=== PATIENT | male | born 1940 | race Caucasian/White ===

== ENCOUNTER 2016-09-17 07:56 | Emergency (ER) | payer MEDICARE ==
[~2016-09-17] VITALS: Ht 180.3 cm; Wt 136.4 kg
[2016-09-17 08:02] VITALS: TEMP 98
[2016-09-17 09:00] LABS: BASO # 0.1 (0.0-0.2); BASO % 1.6 % (0.0-2.0); EOS # 0.2 (0.0-0.7); EOS % 3.9 % (0-4.0); GRAN % 53.1 % (42.2-75.2); HEMATOCRIT 44.3 % (42.0-52.0); HEMOGLOBIN 14.4 g/dl (13.5-18.0); LYMPH # 1.8 (1.2-3.4); LYMPH % 31.4 % (20.0-51.0); MEAN CELL VOLUME 88 fl (80.0-100.0); MEAN CORPUSCULAR HEMOGLOBIN 29 pg (27.0-31.0); MEAN CORPUSCULAR HGB CONC 33 g/dl (33.0-37.0); MEAN PLATELET VOLUME 9.8 fl (7.4-10.4); MONO # 0.6 (0.1-0.6); PLATELET COUNT 104 K/mm3 (130-400); RED BLOOD COUNT 5.01 M/mm3 (4.20-5.60); REDCELL DISTRIBUTION WIDTH-CV 13.7 % (11.5-14.5); WHITE BLOOD COUNT 5.7 K/mm3 (4.8-10.8)
[2016-09-17 09:12] LABS: ADJUSTED CALCIUM 9.5 mg/dL (8.4-10.2); ALANINE AMINOTRANSFERASE 33 U/L (21-72); ALBUMIN 4.3 gm/dL (3.5-5.0); ALKALINE PHOSPHATASE 72 U/L (50-136); ANION GAP 11 mmol/L (7-16); BILIRUBIN,TOTAL 1.2 mg/dL (0.0-1.0); BLOOD UREA NITROGEN 16 mg/dL (9-20); CALCIUM 9.7 mg/dL (8.4-10.2); CARBON DIOXIDE 29 mmol/L (22-30); CHLORIDE 98 mmol/L (98-107); CREATININE, serum 0.69 mg/dL (0.66-1.25); GLUCOSE 100 mg/dL (74-106); LIPASE 43 U/L (23-300); POTASSIUM 4.3 mmol/L (3.4-5.0); SODIUM 138 mmol/L (137-145); TOTAL PROTEIN 7.4 gm/dL (6.4-8.2)
[2016-09-17 09:17] LABS: C-REACTIVE PROTEIN < 0.5 mg/dL (0.0-0.9)
[2016-09-17 09:21] LABS: TROPONIN-I < 0.012 ng/mL (0.000-0.034)
[2016-09-17] MEDS ORDERED: COREG 25MG25 MG/TAB PO (09:28)
[2016-09-17] MEDS ORDERED: FLOMAX 0.40.4 MG/CAP PO (09:28)
[2016-09-17] MEDS ORDERED: PLAVIX 75MG TAB75 MG PO (09:28)
[2016-09-17] MEDS ORDERED: PROTONIX 40MG T40 MG PO (09:29)
[2016-09-17] MEDS ORDERED: MOBIC15 MG PO (09:29)
[2016-09-17] MEDS ORDERED: ZETIA 10MG TAB10 MG PO (09:30)
[2016-09-17] MEDS ORDERED: GLUCOPHAGE1000 MG PO (09:30)
[2016-09-17] MEDS ORDERED: PROSCAR 5MG5 MG PO (09:30)
[2016-09-17] MEDS ORDERED: ONCE DAILY1 TA1 PO (09:30)
[2016-09-17] MEDS ORDERED: TYLENOL #4 (1 UDTAB PO (09:31)
[2016-09-17] MEDS ORDERED: ASPIRIN E.C. 8181 MG PO (09:31)
[2016-09-17] MEDS ORDERED: PERCOCET 325 MG1 TA2 PO (10:29)
[2016-09-17 11:19] VITALS: BP 130/93; PULSE 59
== END 2016-09-17 11:20 | disposition home or self-care (01) ==
LOC: COL.ER 07:56
PROVIDERS: Emergency Medicine
DX: M54.5 Low back pain (principal); G89.29 Other chronic pain; I25.10 Atherosclerotic heart disease of native coronary artery without angina pectoris; I10 Essential (primary) hypertension; Z79.02 Long term (current) use of antithrombotics/antiplatelets
CPT/HCPCS: J1170; J2405; J7030; Q9967

== ENCOUNTER → 2016-10-01 | Outpatient (CLI) | payer MEDICARE ==
[~2016-10-01] MED LIST: ASPIRIN E.C. 8181 MG PO; COREG 25MG25 MG/TAB PO; FLOMAX 0.40.4 MG/CAP PO; GLUCOPHAGE1000 MG PO; MOBIC15 MG PO; ONCE DAILY1 TA1 PO; PERCOCET 325 MG1 TA2 PO; PLAVIX 75MG TAB75 MG PO; PROSCAR 5MG5 MG PO; PROTONIX 40MG T40 MG PO; TYLENOL #4 (1 UDTAB PO; ZETIA 10MG TAB10 MG PO
== END ==
LOC: COL.RAD 07:14
DX: M47.816 Spondylosis without myelopathy or radiculopathy, lumbar region (principal); M48.06 Spinal stenosis, lumbar region; G95.19 Other vascular myelopathies
CPT/HCPCS: A9585

== ENCOUNTER → 2016-10-11 | Outpatient (CLI) | payer MEDICARE | LOC: MHCPAIN 09:21 | DX: G89.29 Other chronic pain (principal); M47.817 Spondylosis without myelopathy or radiculopathy, lumbosacral region; M53.3 Sacrococcygeal disorders, not elsewhere classified; M96.1 Postlaminectomy syndrome, not elsewhere classified | CPT/HCPCS: G0463 ==

== ENCOUNTER → 2016-10-17 | Outpatient (CLI) | payer MEDICARE | LOC: MHCPAIN 09:22 | DX: M53.3 Sacrococcygeal disorders, not elsewhere classified (principal) | CPT/HCPCS: G0260; J1040; Q9967 ==